=== PATIENT | female | born 1965 | race Caucasian/White ===

== ENCOUNTER → 2020-09-28 | Outpatient (CLI) | payer OTHER ==
--- NOTE | 2020-10-01 16:29 | RAD ---
DATE: 09/28/2020 12:50 PM EXAM: DIGITAL SCREEN BILAT W/CAD HISTORY: Screening COMPARISON: 02/03/2019, 12/26/2014 Bilateral full field craniocaudal and mediolateral oblique images were obtained using digital technique. This study was interpreted with the benefit of Computerized Aided Detection (CAD). FINDINGS: Breast Density: SCATTERED The breast parenchyma shows scattered fibroglandular densities. Breast parenchyma level B No suspicious masses, microcalcifications or architectural distortion is present to suggest malignancy in either breast. The visualized axillae are unremarkable. IMPRESSION: No mammographic evidence of malignancy. BI-RADS CATEGORY: 1 NEGATIVE RECOMMENDED FOLLOW-UP: 12M 12 MONTH FOLLOW-UP Annual screening mammography is recommended, unless clinically indicated sooner based on symptoms or change in physical exam. PQRS compliance statement: Patient information was entered into a reminder system with a target due date for the next mammogram. Mammography is a sensitive method for finding small breast cancers, but it does not detect them all and is not a substitute for careful clinical examination. A negative mammogram does not negate a clinically suspicious finding and should not result in delay in biopsying a clinically suspicious abnormality. "Our facility is accredited by the [employer] Mammography Program."
== END ==
LOC: MAMMO 12:46
PROVIDERS: ATTEND Physician Assistant Medical
DX: Z12.31 Encounter for screening mammogram for malignant neoplasm of breast (principal); N64.89 Other specified disorders of breast
CPT/HCPCS: 77067

== ENCOUNTER → 2021-01-02 | Outpatient (CLI) | payer OTHER ==
--- NOTE | 2021-01-02 08:56 | RAD ---
EXAM: 3 views of the right ankle DATE: 01/02/2021 8:25 AM INDICATION: Reason: RIGHT ANKLE PAIN S/P FALL THURSDAY, SORE ON LATERAL ANKLE / Spl. Instructions: / History: COMPARISON: No Prior FINDINGS: No acute fracture or dislocation. Ankle mortise is congruent. Talar dome is intact. Joint spaces are preserved without significant degenerative/proliferative change. No significant soft tissue swelling. Calcaneal enthesopathy. IMPRESSION: 1. No acute fracture or dislocation. 2. Calcaneal enthesopathy. Electronically signed by: Chapo Dominique MD (01/02/2021 8:54 AM) [id number]
== END ==
LOC: PMG 08:15
PROVIDERS: ATTEND Nurse Practitioner Family
DX: M77.31 Calcaneal spur, right foot (principal)
CPT/HCPCS: 73610

== ENCOUNTER → 2021-01-18 | Outpatient (CLI) | payer OTHER ==
[~2021-01-18] MED LIST: CEPH750C9 PO
== END ==
LOC: LAB 08:19
PROVIDERS: ATTEND Nurse Anesthetist, Certified Registered
DX: Z01.812 Encounter for preprocedural laboratory examination (principal); Z20.822 Contact with and (suspected) exposure to COVID-19
CPT/HCPCS: U0003; U0005

== ENCOUNTER → 2021-01-22 | Day surgery (SDC) | payer OTHER ==
[~2021-01-22] MED LIST changes: +IPRATRPIUM/ALBUTEROL 0.5/2.5MG 3 ML NEBU. NEB PRN; +IV RINGERS SOLUTION,LACTATED 1,000 ML IV SCH; +LIDOCAINE 2% PF 5 ML VIAL. ONE; +MIDAZOLAM HCL PF 2 MG/2 ML VIAL. IV ONE; +ONDANSETRON PF 4 MG/2 ML VIAL. IV PRN; +PROPOFOL 10,000 MCG/ML (20ML) VIAL IV ONE
[2021-01-22 12:23] VITALS: BP 135/74
--- NOTE | 2021-01-29 12:12 | PATHOLOGY ---
[facility] Accession Number: [id number] . 01 Material submitted: . PART A: colon - ASCENDING COLON POLYP X 3. Modifiers: ascending PART B: sigmoid colon - SIGMOID COLON POLYP . 01 Clinical history: . SCREENING COLON . 02 Diagnosis: A. Colon biopsies, ascending colon polyp x3: - Tubular adenomas (2). - Hyperplastic polyp (1). . B. Colon biopsy, sigmoid colon polyp: - Tubular adenoma. . (JPM:mm; 01/28/2021) [facility] 01/28/2021 1623 Local . 02 Comment: There is no high grade dysplasia or evidence of malignancy. . (JPM:mml; 01/28/2021) . 02 Electronically signed: . Timi Hoover MD, Pathologist NPI- [id number] . 01 Gross description: . A. Received in formalin labeled "Florecita Wheeler, ascending colon polyp x3" are multiple thompson-brown soft tissue fragments measuring in aggregate 1.7 x 0.6 x 0.3 cm. The specimen is submitted entirely in A1. . B. Received in formalin labeled "Von Zander, Florecita , sigmoid colon polyp " are multiple thompson-brown soft tissue fragments and foreign material measuring in aggregate 0.1 x 0.4 x 0.3 cm. The specimen is submitted entirely in B1. ([facility]; 01/25/2021) . GZA/GZA 01/25/2021 1324 Local . 02 Pathologist provided ICD-10: D12.2, D12.5 . 02 CPT . 132222, [id number] Specimen Comment: A courtesy copy of this report has been sent to [phone] Specimen Comment: [id number] Specimen Comment: Report sent to / DR MONROE Performed at: 01 [facility] [address] [facility] [address], [place] [id number] MD Lucas Boland MD Phone: [phone] Performed at: 02 [facility] [address] [place], [place] [id number] MD Timi Hoover MD Phone: [phone]
== END | disposition home or self-care (01) ==
LOC: SURG 10:05
PROVIDERS: ATTEND Internal Medicine Gastroenterology
DX: Z12.11 Encounter for screening for malignant neoplasm of colon (principal); D12.2 Benign neoplasm of ascending colon; D12.5 Benign neoplasm of sigmoid colon; K63.89 Other specified diseases of intestine; K21.9 Gastro-esophageal reflux disease without esophagitis; E78.5 Hyperlipidemia, unspecified; F17.210 Nicotine dependence, cigarettes, uncomplicated; Z79.899 Other long term (current) drug therapy; Z72.89 Other problems related to lifestyle
CPT/HCPCS: 45385; 88305; J2001; J2704; J7120